=== PATIENT | female | born 1985 | race Two or more races ===

== ENCOUNTER 2020-03-25 11:31 | Outpatient (CLI) | payer OTHER | END 2020-03-25 12:38 | disposition home or self-care (01) | LOC: RAD 11:31 | DX: M79.671 Pain in right foot (principal) ==

== ENCOUNTER 2020-03-30 13:54 | Outpatient (CLI) | payer OTHER | END 2020-03-30 14:02 | disposition home or self-care (01) | LOC: RAD 13:54 | PROVIDERS: ATTEND Specialist | DX: S93.401A Sprain of unspecified ligament of right ankle, initial encounter (principal) ==